=== PATIENT | female | born 1940 | race Caucasian/White ===

== ENCOUNTER → 2017-05-05 | Outpatient (CLI) | payer MEDICARE, BC ==
[2013-05-16 23:29] VITALS: BP 125/65
[~2017-05-05] MED LIST: LEVOTHYROXIN0.025 MG; SERTRALINE25 MG
== END ==
LOC: MAMMO 09:36
DX: Z12.31 Encounter for screening mammogram for malignant neoplasm of breast (principal)
CPT/HCPCS: G0202

== ENCOUNTER → 2017-05-05 | Outpatient (CLI) | payer MEDICARE, BC ==
[2013-05-16 23:29] VITALS: BP 125/65
== END ==
LOC: RAD 09:38
DX: Z13.820 Encounter for screening for osteoporosis (principal); M85.851 Other specified disorders of bone density and structure, right thigh; M85.88 Other specified disorders of bone density and structure, other site

== ENCOUNTER 2017-12-21 10:00 | Outpatient (RCR) | payer MEDICARE, BC ==
[2013-05-16 23:29] VITALS: BP 125/65
== END 2017-12-21 10:30 | disposition still patient (30) ==
LOC: PT 10:00
DX: M54.6 Pain in thoracic spine (principal); G89.29 Other chronic pain

== ENCOUNTER → 2018-11-26 | Outpatient (CLI) | payer MEDICARE, BC ==
[2013-05-16 23:29] VITALS: BP 125/65
== END ==
LOC: RAD 09:48
DX: I82.4Z1 Acute embolism and thrombosis of unspecified deep veins of right distal lower extremity (principal)

== ENCOUNTER → 2021-02-11 | Day surgery (SDC) | payer MEDICARE, BC ==
[2013-05-16 23:29] VITALS: BP 125/65
[~2021-02-11] MED LIST changes: +ATORVASTATIN CA40 MG PO; +CEFDINIR300 MG PO; +GABAPENTIN100 MG PO; -LEVOTHYROXIN0.025 MG; +LEVOTHYROXIN0.025 MG PO; +MACROBID 1100 MG/CAP PO; -SERTRALINE25 MG; +ZOFRAN ODT4 MG PO; +ZOLOFT 50MG50 MG PO
== END ==
LOC: MSO 07:58
DX: K21.9 Gastro-esophageal reflux disease without esophagitis (principal); K44.9 Diaphragmatic hernia without obstruction or gangrene; F32.9 Major depressive disorder, single episode, unspecified; Z86.73 Personal history of transient ischemic attack (TIA), and cerebral infarction without residual deficits; Z79.899 Other long term (current) drug therapy
CPT/HCPCS: 00731; J2704; J7120

== ENCOUNTER → 2021-07-27 | Outpatient (CLI) | payer MEDICARE, BC | LOC: LAB 11:55 | DX: N30.01 Acute cystitis with hematuria (principal) ==

== ENCOUNTER → 2021-07-30 | Outpatient (CLI) | payer MEDICARE, BC ==
[2021-07-30 10:12] LABS: BASO # 0.05 (0.02-0.10); EOS # 0.05 (0.04-0.40); EOS % 0.8 % (1.0-5.0); HEMATOCRIT 44.2 % (37.0-47.0); HEMOGLOBIN 14.3 g/dL (12.5-16.0); LYMPH# 0.61 (1.50-4.00); MEAN CELL VOLUME 96 fl (78-100); MEAN CORPUSCULAR HEMOGLOBIN 31 pg (27-31); MEAN CORPUSCULAR HGB CONC 32 g/dL (33-37); MEAN PLATELET VOLUME 9.1 fl (7.4-10.4); MONO # 0.46 (0.20-0.80); NEU # 4.96 (1.40-6.50); PLATELET COUNT 265 K/mm3 (130-400); RED BLOOD COUNT 4.63 M/mm3 (4.10-5.30); RED CELL DISTRIBUTION WIDTH 13.9 % (11.5-14.5); WHITE BLOOD COUNT 6.1 K/mm3 (4.8-10.8)
[2021-07-30 10:32] LABS: ALBUMIN 3.9 g/dL (3.4-4.8); POTASSIUM 4.1 mmol/L (3.5-5.1)
[2021-07-30 10:33] LABS: CALCIUM 10.1 mg/dL (8.3-10.5)
[2021-07-30 10:36] LABS: TOTAL BILIRUBIN 1.1 mg/dL (0.2-1.2)
== END ==
LOC: LAB 09:48
PROVIDERS: Nurse Practitioner
DX: R10.9 Unspecified abdominal pain (principal)

== ENCOUNTER 2021-07-31 10:52 | Emergency (ER) | payer MEDICARE, BC ==
[~2021-07-31] VITALS: Ht 160 cm; Wt 68.2 kg
[~2021-07-31 10:52] MED LIST changes: -ATORVASTATIN CA40 MG PO; -CEFDINIR300 MG PO; -GABAPENTIN100 MG PO; -MACROBID 1100 MG/CAP PO; -ZOFRAN ODT4 MG PO
[2021-07-31 11:26] LABS: HEMATOCRIT 39.5 % (37.0-47.0); HEMOGLOBIN 12.9 g/dL (12.5-16.0); MEAN CELL VOLUME 95 fl (78-100); MEAN CORPUSCULAR HEMOGLOBIN 31 pg (27-31); MEAN CORPUSCULAR HGB CONC 33 g/dL (33-37); MEAN PLATELET VOLUME 9.3 fl (7.4-10.4); PLATELET COUNT 238 K/mm3 (130-400); RED BLOOD COUNT 4.17 M/mm3 (4.10-5.30); RED CELL DISTRIBUTION WIDTH 13.8 % (11.5-14.5); WHITE BLOOD COUNT 6.5 K/mm3 (4.8-10.8)
[2021-07-31 11:31] LABS: ALBUMIN 3.6 g/dL (3.4-4.8); POTASSIUM 3.9 mmol/L (3.5-5.1)
[2021-07-31 11:33] LABS: CALCIUM 9.6 mg/dL (8.3-10.5)
[2021-07-31 11:34] LABS: TOTAL PROTEIN 6.4 g/dL (6.2-8.1)
[2021-07-31 11:36] LABS: TOTAL BILIRUBIN 1.2 mg/dL (0.2-1.2)
[2021-07-31] MEDS ORDERED: GABAPENTIN100 MG PO (11:39)
[2021-07-31] MEDS ORDERED: MACROBID 1100 MG/CAP PO (11:39)
[2021-07-31] MEDS ORDERED: ZOFRAN ODT4 MG PO (11:40)
[2021-07-31] MEDS ORDERED: ATORVASTATIN CA40 MG PO (11:41)
[2021-07-31 11:50] LABS: LYMPHOCYTE 6 % (20-51); MONOCYTE 5 % (3-10); NEUTROPHILS 88 % (42-75)
[2021-07-31 12:39] LABS: URINE APPEARANCE CLEAR; URINE BILIRUBIN NEGATIVE (NEGATIVE); URINE BLOOD 50 ery/uL (NEGATIVE); URINE COLOR YELLOW; URINE GLUCOSE NEGATIVE (NEGATIVE); URINE KETONE NEGATIVE (NEGATIVE); URINE LEUKOCYTE ESTERASE 1+ (NEGATIVE); URINE MUCUS PRESENT (NOT PRESENT); URINE NITRATE NEGATIVE (NEGATIVE); URINE PROTEIN(semi-quant) NEGATIVE (NEGATIVE); URINE UROBILINOGEN NORMAL (NORMAL)
[2021-07-31] MEDS ORDERED: CEFDINIR300 MG PO (13:10)
[2021-07-31 13:16] VITALS: BP 113/58
== END 2021-07-31 13:28 | disposition home or self-care (01) ==
LOC: ED 10:52
PROVIDERS: Physician Assistant
DX: J98.11 Atelectasis (principal); R11.0 Nausea; N39.0 Urinary tract infection, site not specified; E03.9 Hypothyroidism, unspecified; E78.5 Hyperlipidemia, unspecified; Z79.890 Hormone replacement therapy; Z79.899 Other long term (current) drug therapy

== ENCOUNTER → 2021-08-07 | Outpatient (CLI) | payer MEDICARE, BC ==
[~2021-08-07] MED LIST changes: +ATORVASTATIN CA40 MG PO; +CEFDINIR300 MG PO; +GABAPENTIN100 MG PO; +MACROBID 1100 MG/CAP PO; +ZOFRAN ODT4 MG PO
== END ==
LOC: LAB 13:53
DX: Z20.822 Contact with and (suspected) exposure to COVID-19 (principal); Z87.440 Personal history of urinary (tract) infections

== ENCOUNTER → 2021-09-05 | Outpatient (CLI) | payer MEDICARE, BC ==
[2021-09-05 13:29] LABS: BASO # 0.05 K/mm3 (0.02-0.10); EOS # 0.23 K/mm3 (0.04-0.40); EOS % 3.7 % (1.0-5.0); HEMATOCRIT 44.2 % (37.0-47.0); HEMOGLOBIN 14.2 g/dL (12.5-16.0); LYMPH# 1.29 K/mm3 (1.50-4.00); MEAN CELL VOLUME 96 fl (78-100); MEAN CORPUSCULAR HEMOGLOBIN 31 pg (27-31); MEAN CORPUSCULAR HGB CONC 32 g/dL (33-37); MEAN PLATELET VOLUME 9.2 fl (7.4-10.4); MONO # 0.48 K/mm3 (0.20-0.80); NEU # 4.23 K/mm3 (1.40-6.50); PLATELET COUNT 268 K/mm3 (130-400); RED BLOOD COUNT 4.62 M/mm3 (4.10-5.30); WHITE BLOOD COUNT 6.3 K/mm3 (4.8-10.8)
[2021-09-05 13:38] LABS: ALBUMIN 4.1 g/dL (3.4-4.8)
[2021-09-05 13:39] LABS: POTASSIUM 4.7 mmol/L (3.5-5.1)
[2021-09-05 13:40] LABS: CALCIUM 10.3 mg/dL (8.3-10.5)
[2021-09-05 13:41] LABS: TOTAL PROTEIN 6.9 g/dL (6.2-8.1)
[2021-09-05 13:43] LABS: TOTAL BILIRUBIN 0.5 mg/dL (0.2-1.2)
== END ==
LOC: LAB 12:20
PROVIDERS: Nurse Practitioner Family
DX: U07.1 COVID-19 (principal); J18.1 Lobar pneumonia, unspecified organism

== ENCOUNTER 2021-09-06 13:47 | Emergency (ER) | payer MEDICARE, BC ==
[~2021-09-06] VITALS: Ht 167.6 cm; Wt 69.4 kg
[2021-09-06 14:40] LABS: BASO # 0.04 K/mm3 (0.02-0.10); EOS # 0.12 K/mm3 (0.04-0.40); EOS % 2.8 % (1.0-5.0); HEMATOCRIT 40.2 % (37.0-47.0); HEMOGLOBIN 13.1 g/dL (12.5-16.0); LYMPH# 1.06 K/mm3 (1.50-4.00); MEAN CELL VOLUME 96 fl (78-100); MEAN CORPUSCULAR HEMOGLOBIN 31 pg (27-31); MEAN CORPUSCULAR HGB CONC 33 g/dL (33-37); MEAN PLATELET VOLUME 9.4 fl (7.4-10.4); MONO # 0.33 K/mm3 (0.20-0.80); NEU # 2.71 K/mm3 (1.40-6.50); PLATELET COUNT 283 K/mm3 (130-400); RED BLOOD COUNT 4.21 M/mm3 (4.10-5.30); WHITE BLOOD COUNT 4.3 K/mm3 (4.8-10.8)
[2021-09-06 14:43] LABS: ALBUMIN 3.8 g/dL (3.4-4.8)
[2021-09-06 14:44] LABS: POTASSIUM 3.9 mmol/L (3.5-5.1)
[2021-09-06 14:45] LABS: CALCIUM 10.1 mg/dL (8.3-10.5)
[2021-09-06 14:48] LABS: TOTAL BILIRUBIN 0.4 mg/dL (0.2-1.2)
[2021-09-06 16:47] VITALS: BP 122/90
== END 2021-09-06 16:47 | disposition home or self-care (01) ==
LOC: ED 13:47
PROVIDERS: Nurse Practitioner Family
DX: U07.1 COVID-19 (principal); E03.9 Hypothyroidism, unspecified; E78.5 Hyperlipidemia, unspecified; Z73.0 Burn-out; Z79.890 Hormone replacement therapy; Z79.899 Other long term (current) drug therapy
CPT/HCPCS: Q0244

== ENCOUNTER → 2021-09-23 | Outpatient (CLI) | payer MEDICARE, BC ==
[2021-09-23 12:19] LABS: BASO # 0.05 K/mm3 (0.02-0.10); EOS # 0.11 K/mm3 (0.04-0.40); EOS % 2.1 % (1.0-5.0); HEMATOCRIT 40.7 % (37.0-47.0); HEMOGLOBIN 13.2 g/dL (12.5-16.0); LYMPH# 1.16 K/mm3 (1.50-4.00); MEAN CELL VOLUME 96 fl (78-100); MEAN CORPUSCULAR HEMOGLOBIN 31 pg (27-31); MEAN CORPUSCULAR HGB CONC 32 g/dL (33-37); MEAN PLATELET VOLUME 8.8 fl (7.4-10.4); MONO # 0.34 K/mm3 (0.20-0.80); NEU # 3.56 K/mm3 (1.40-6.50); PLATELET COUNT 298 K/mm3 (130-400); RED BLOOD COUNT 4.25 M/mm3 (4.10-5.30); RED CELL DISTRIBUTION WIDTH 13.4 % (11.5-14.5); WHITE BLOOD COUNT 5.2 K/mm3 (4.8-10.8)
[2021-09-23 12:27] LABS: ALBUMIN 3.8 g/dL (3.4-4.8); POTASSIUM 4.5 mmol/L (3.5-5.1)
[2021-09-23 12:28] LABS: CALCIUM 9.8 mg/dL (8.3-10.5)
[2021-09-23 12:29] LABS: TOTAL PROTEIN 6.7 g/dL (6.2-8.1)
[2021-09-23 12:31] LABS: TOTAL BILIRUBIN 0.5 mg/dL (0.2-1.2)
== END ==
LOC: LAB 11:59
PROVIDERS: Family Medicine
DX: Z00.00 Encounter for general adult medical examination without abnormal findings (principal); E78.5 Hyperlipidemia, unspecified; E03.9 Hypothyroidism, unspecified

== ENCOUNTER → 2021-11-08 | Outpatient (CLI) | payer MEDICARE, BC ==
[2021-11-08 12:03] LABS: BASO # 0.04 K/mm3 (0.02-0.10); EOS # 0.03 K/mm3 (0.04-0.40); EOS % 0.6 % (1.0-5.0); HEMATOCRIT 42.8 % (37.0-47.0); HEMOGLOBIN 13.7 g/dL (12.5-16.0); LYMPH# 1.08 K/mm3 (1.50-4.00); MEAN CELL VOLUME 97 fl (78-100); MEAN CORPUSCULAR HEMOGLOBIN 31 pg (27-31); MEAN CORPUSCULAR HGB CONC 32 g/dL (33-37); MEAN PLATELET VOLUME 8.7 fl (7.4-10.4); MONO # 0.36 K/mm3 (0.20-0.80); NEU # 3.83 K/mm3 (1.40-6.50); PLATELET COUNT 320 K/mm3 (130-400); RED BLOOD COUNT 4.42 M/mm3 (4.10-5.30); RED CELL DISTRIBUTION WIDTH 13.6 % (11.5-14.5); WHITE BLOOD COUNT 5.4 K/mm3 (4.8-10.8)
[2021-11-08 12:12] LABS: ALBUMIN 4.1 g/dL (3.4-4.8)
[2021-11-08 12:13] LABS: POTASSIUM 4.5 mmol/L (3.5-5.1)
[2021-11-08 12:14] LABS: CALCIUM 9.4 mg/dL (8.3-10.5)
[2021-11-08 12:17] LABS: TOTAL BILIRUBIN 0.5 mg/dL (0.2-1.2)
[2021-11-08 12:22] LABS: URINE APPEARANCE CLEAR; URINE COLOR YELLOW
[2021-11-08 12:23] LABS: PH-URINE 6.5 (5.0 - 8.0); URINE BILIRUBIN NEGATIVE (NEGATIVE); URINE BLOOD 50 ery/uL (NEGATIVE); URINE GLUCOSE NEGATIVE (NEGATIVE); URINE KETONE NEGATIVE (NEGATIVE); URINE LEUKOCYTE ESTERASE 1+ (NEGATIVE); URINE MUCUS PRESENT (NOT PRESENT); URINE NITRATE NEGATIVE (NEGATIVE); URINE PROTEIN(semi-quant) TRACE mg/dL (NEGATIVE); URINE UROBILINOGEN NORMAL (NORMAL)
== END ==
LOC: LAB 11:37
PROVIDERS: Family Medicine
DX: I67.82 Cerebral ischemia (principal)

== ENCOUNTER → 2021-12-18 | Outpatient (CLI) | payer MEDICARE, BC ==
[2021-12-18 11:16] LABS: BASO # 0.04 K/mm3 (0.02-0.10); EOS # 0.08 K/mm3 (0.04-0.40); EOS % 1.5 % (1.0-5.0); HEMATOCRIT 42.7 % (37.0-47.0); HEMOGLOBIN 13.9 g/dL (12.5-16.0); LYMPH# 1.08 K/mm3 (1.50-4.00); MEAN CELL VOLUME 96 fl (78-100); MEAN CORPUSCULAR HEMOGLOBIN 31 pg (27-31); MEAN CORPUSCULAR HGB CONC 33 g/dL (33-37); MEAN PLATELET VOLUME 9.1 fl (7.4-10.4); MONO # 0.31 K/mm3 (0.20-0.80); NEU # 3.94 K/mm3 (1.40-6.50); PLATELET COUNT 265 K/mm3 (130-400); RED BLOOD COUNT 4.45 M/mm3 (4.10-5.30); RED CELL DISTRIBUTION WIDTH 13.6 % (11.5-14.5); WHITE BLOOD COUNT 5.5 K/mm3 (4.8-10.8)
== END ==
LOC: LAB 10:51
PROVIDERS: Family Medicine
DX: K92.1 Melena (principal); R73.9 Hyperglycemia, unspecified

== ENCOUNTER → 2022-05-02 | Outpatient (CLI) | payer MEDICARE, BC ==
[2022-05-02 13:19] LABS: BASO # 0.05 K/mm3 (0.02-0.10); EOS # 0.12 K/mm3 (0.04-0.40); EOS % 1.9 % (1.0-5.0); HEMOGLOBIN 13.9 g/dL (12.5-16.0); LYMPH# 1.22 K/mm3 (1.50-4.00); MEAN CELL VOLUME 96 fl (78-100); MEAN CORPUSCULAR HEMOGLOBIN 31 pg (27-31); MEAN CORPUSCULAR HGB CONC 32 g/dL (33-37); MONO # 0.31 K/mm3 (0.20-0.80); NEU # 4.49 K/mm3 (1.40-6.50); PLATELET COUNT 300 K/mm3 (130-400); RED CELL DISTRIBUTION WIDTH 13.4 % (11.5-14.5); WHITE BLOOD COUNT 6.2 K/mm3 (4.8-10.8)
[2022-05-02 13:30] LABS: POTASSIUM 4.7 mmol/L (3.5-5.1)
[2022-05-02 13:32] LABS: CALCIUM 9.8 mg/dL (8.3-10.5)
[2022-05-02 13:33] LABS: TOTAL PROTEIN 6.6 g/dL (6.2-8.1)
[2022-05-02 13:35] LABS: TOTAL BILIRUBIN 0.8 mg/dL (0.2-1.2)
[2022-05-02 13:37] LABS: URINE APPEARANCE CLEAR; URINE BILIRUBIN 2+ (NEGATIVE); URINE BLOOD TRACE (NEGATIVE); URINE COLOR YELLOW; URINE GLUCOSE NEGATIVE (NEGATIVE); URINE KETONE NEGATIVE (NEGATIVE); URINE LEUKOCYTE ESTERASE 2+ (NEGATIVE); URINE MUCUS PRESENT (NOT PRESENT); URINE NITRATE NEGATIVE (NEGATIVE); URINE PROTEIN(semi-quant) TRACE (NEGATIVE); URINE UROBILINOGEN NORMAL (NORMAL)
== END ==
LOC: LAB 13:03
PROVIDERS: Family Medicine
DX: K57.30 Diverticulosis of large intestine without perforation or abscess without bleeding (principal); F03.90 Unspecified dementia, unspecified severity, without behavioral disturbance, psychotic disturbance, mood disturbance, and anxiety; F32.A Depression, unspecified; E78.5 Hyperlipidemia, unspecified; E03.9 Hypothyroidism, unspecified; E66.9 Obesity, unspecified; G64 Other disorders of peripheral nervous system; K21.9 Gastro-esophageal reflux disease without esophagitis

== ENCOUNTER → 2022-05-22 | Day surgery (SDC) | payer MEDICARE, BC | END | disposition home or self-care (01) | LOC: MSO 07:15 | DX: K21.9 Gastro-esophageal reflux disease without esophagitis (principal); K44.9 Diaphragmatic hernia without obstruction or gangrene; K59.00 Constipation, unspecified; R11.0 Nausea; Z12.11 Encounter for screening for malignant neoplasm of colon; D12.8 Benign neoplasm of rectum; D12.0 Benign neoplasm of cecum; K57.30 Diverticulosis of large intestine without perforation or abscess without bleeding; Z86.16 Personal history of COVID-19 | CPT/HCPCS: 00813; J2704; J7120 ==

== ENCOUNTER → 2022-05-29 | Outpatient (CLI) | payer MEDICARE, BC | LOC: RAD 08:47 | DX: R11.0 Nausea (principal) ==

== ENCOUNTER → 2022-06-20 | Outpatient (CLI) | payer MEDICARE, BC ==
[2022-06-20 12:56] LABS: BASO # 0.03 K/mm3 (0.02-0.10); HEMATOCRIT 43.4 % (37.0-47.0); HEMOGLOBIN 14.1 g/dL (12.5-16.0); LYMPH# 1.25 K/mm3 (1.50-4.00); MEAN CELL VOLUME 95 fl (78-100); MEAN CORPUSCULAR HEMOGLOBIN 31 pg (27-31); MEAN CORPUSCULAR HGB CONC 33 g/dL (33-37); MONO # 0.33 K/mm3 (0.20-0.80); NEU # 3.38 K/mm3 (1.40-6.50); PLATELET COUNT 285 K/mm3 (130-400); RED BLOOD COUNT 4.55 M/mm3 (4.10-5.30); WHITE BLOOD COUNT 5.1 K/mm3 (4.8-10.8)
[2022-06-20 13:04] LABS: ALBUMIN 4.1 g/dL (3.4-4.8)
[2022-06-20 13:05] LABS: POTASSIUM 4.4 mmol/L (3.5-5.1)
[2022-06-20 13:06] LABS: CALCIUM 9.8 mg/dL (8.3-10.5)
[2022-06-20 13:07] LABS: TOTAL PROTEIN 6.9 g/dL (6.2-8.1)
[2022-06-20 13:09] LABS: TOTAL BILIRUBIN 0.6 mg/dL (0.2-1.2)
== END ==
LOC: LAB 12:41
PROVIDERS: Nurse Practitioner Family
DX: S09.90XA Unspecified injury of head, initial encounter (principal); W19.XXXA Unspecified fall, initial encounter

== ENCOUNTER → 2023-01-14 | Outpatient (CLI) | payer MEDICARE, BC | LOC: RAD 10:01 | DX: M51.36 Other intervertebral disc degeneration, lumbar region (principal); M25.552 Pain in left hip ==

== ENCOUNTER → 2024-02-04 | Outpatient (CLI) | payer MEDICARE, BC ==
[~2024-02-04] MED LIST changes: +CEPHALEXIN500 M1 PO; +LASIX20 M1 PO; +LASIX40 M1 PO; +PANTOPRAZOLE SO40 MG PO; +SEROQUEL 2525 MG/TAB PO
== END ==
LOC: RAD 12:18
DX: S09.90XD Unspecified injury of head, subsequent encounter (principal); Z91.81 History of falling